=== PATIENT | male | born 1990 | race Caucasian/White ===

== ENCOUNTER 2023-07-09 23:08 | Emergency (ER) | payer SELFPAY ==
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
--- NOTE | 2023-07-09 23:10 | ECG_ITS ---
APPROVED REPORT Exam: Resting ECG HR:89 bpm ECG Measurements Heart Rate 89 AXES NH 162 P 61 QRSd 86 QRS 79 QT 359 T 69 QTc 406 Conclusion SINUS RHYTHM NORMAL ECG Electronically signed by : NIDIA RODRIGES, 07/10/2023 04:59:21
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
--- NOTE | 2023-07-09 23:16 | PC.NURSE ---
call placed to rad. advised of need for ct wendy.
[2023-07-09 23:19] LABS: Basophils # 0.1 K/mm3 (0-0.2); Basophils % 0.9 % (0.1-2.0); Eosinophils # 0.2 K/mm3 (0.0-0.4); Eosinophils % 1.6 % (0.1-12.0); Hematocrit 49.9 % (42.0-52.0); Hemoglobin 16.2 g/dL (14.1-18.0); Lymphocytes % 20.4 % (10-50); Mean Corpuscular HGB Conc 32.4 g/dL (31.8-35.4); Mean Corpuscular Hemoglobin 31.4 pg (27.0-31.2); Mean Corpuscular Volume 96.7 fl (80-94); Mean Platelet Volume 8.4 fl (7.4-10.4); Monocytes # 0.5 K/mm3 (0.1-1.0); Monocytes % 5.3 % (1.7-9.3); Neutrophils % 71.8 % (37.0-80.0); Platelet Count 235 K/mm3 (142-424); Red Blood Count 5.16 M/mm3 (4.60-6.20); Red Cell Distribution Width 14.3 % (11.5-17.5); White Blood Count 9.7 K/mm3 (4.8-10.8)
[2023-07-09 23:21] VITALS: BP 123/91; BP 124/80; PULSE 92; RESP 22; TEMP 36.8; O2SAT 95; BMI 16.7
--- NOTE | 2023-07-09 23:22 | PC.NURSE ---
patient to rad
[2023-07-09 23:28] LABS: Chloride 108 mmol/L (98-107); Potassium 4.6 mmoL/L (3.5-5.1); Sodium 145 mmol/L (136-145)
[2023-07-09 23:30] VITALS: BP 123/93; PULSE 98; RESP 18; TEMP 36.8; O2SAT 98
[2023-07-09 23:30] LABS: Blood Urea Nitrogen 11 mg/dl (9-20); Estimated Glomerular Filt Rate 86 ml/min (>60); GFR (African American) 104 ML/MIN (>60)
[2023-07-09 23:31] LABS: Alanine Aminotransferase 27 U/L (12-78); Albumin Level 4.8 g/dl (3.5-5.0); Albumin/Globulin Ratio 1.4 (1.1-1.8); Alkaline Phosphatase 96 U/L (38-126); Anion Gap 15.6 mEq/L (5-15); Aspartate Amino Transferase 48 U/L (17-59); Bilirubin,Total 0.7 mg/dl (0.2-1.3); Calcium 9.2 mg/dl (8.4-10.2); Carbon Dioxide 26 mmol/L (22.0-30.0); Globulin 3.5 g/dL (1.3-3.2); Glucose 87 mg/dl (74-100); Total Protein,Serum 8.3 g/dl (6.3-8.2)
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
[2023-07-09 23:34] LABS: Ethyl Alcohol 173 mg/dl (0-10)
[2023-07-09] MEDS: 0.9 % SODIUM CHLORIDE 50 ML VIAL IV (23:37)
[2023-07-09] MEDS: SODIUM CHLORIDE 0.9% 10ML SYR (RAD ONLY) 10 ML IV (23:37)
[2023-07-09] MEDS: IOPAMIDOL-370 (76%);100ML BOTTLE 100 ML IV (23:37)
[2023-07-09] MEDS: ONDANSETRON 4MG/2ML VIAL 4 MG IV (23:40)
[2023-07-09] MEDS: ACETAMINOPHEN 1,000MG/100ML VIAL 1000 MG IV (23:40)
[2023-07-09] MEDS: MORPHINE 4MG/ML SYRINGE 4 MG IV (23:40)
[2023-07-09 23:44] LABS: Troponin I < 0.01 ng/ml (0.00-0.034)
[2023-07-09 23:45] VITALS: BP 118/85; PULSE 93; RESP 18; TEMP 36.8; O2SAT 97
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
[2023-07-10 00:15] VITALS: BP 114/70; PULSE 91; RESP 16; TEMP 36.4; O2SAT 97
[2023-07-10 00:51] VITALS: BP 125/83; PULSE 83; RESP 15; TEMP -17.7; TEMP 0; O2SAT 96
== END 2023-07-10 00:51 | disposition left against medical advice (07) ==
PROVIDERS: Emergency Provider Emergency Medicine
DX: S20.219A Contusion of unspecified front wall of thorax, initial encounter (principal); T75.1XXA Unspecified effects of drowning and nonfatal submersion, initial encounter; W22.8XXA Striking against or struck by other objects, initial encounter
CPT/HCPCS: 71275; 74174; 80053; 84484; 85025; 93005; 96374; 96375; 99285; J0131; J2405; Q9967